=== PATIENT | male | born 2000 ===

== ENCOUNTER 2024-07-26 05:13 | Day surgery (SDC) | payer OTHER ==
[2024-07-20 11:18] VITALS: BP 121/77
[~2024-07-26] VITALS: Ht 177.8 cm; Wt 83.9 kg
[~2024-07-26 05:13] MED LIST: ABILIFY20 MG; CONCERTA18 MG PO; LEXAPRO20 MG; LEXAPRO5 MG PO; LITIO; LOVAZA1 GM PO; SYNTHROID50 MCG PO; TRILIPIX135 MG PO
[2024-07-26] MEDS ORDERED: BUPIVACAINE HCL 30 ML VIAL IJ ONE (10:15)
[2024-07-26] MEDS ORDERED: BUPIVACAINE LIPOSOME/PF 266 MG/20 ML VIAL IJ ONE (10:15)
[2024-07-26] MEDS ORDERED: POVIDONE-IODINE 118 ML BOTT TOP ONE (10:15)
[2024-07-26] MEDS ORDERED: HEMOSTATIC MATRIX 1 KIT KIT TOP ONE (10:15)
[2024-07-26] MEDS ORDERED: DIBUCAINE 30 GM TUBE RECTAL ONE (10:15)
[2024-07-26] MEDS ORDERED: CEFTRIAXONE SODIUM 2,000 MG VIAL IV SCH (10:15)
[2024-07-26] MEDS ORDERED: METRONIDAZOLE/SODIUM CHLORIDE 500 MG/100 ML PIGGYBACK IV SCH (10:15)
[2024-07-26] MEDS ORDERED: OXYCODONE HCL5 MG PO (10:38)
[2024-07-26] MEDS ORDERED: TAMSULOSIN HCL 0.4 MG CAP PO ONE (10:45)
[2024-07-26] MEDS ORDERED: MORPHINE SULFATE 4 MG/ML VIAL IV ONE (13:20)
== END 2024-07-26 15:15 | disposition home or self-care (01) ==
LOC: CIR.AMB 05:13
PROVIDERS: ATTEND Surgery
DX: D12.8 Benign neoplasm of rectum (principal); K62.89 Other specified diseases of anus and rectum; K62.5 Hemorrhage of anus and rectum; K62.0 Anal polyp; K60.1 Chronic anal fissure; K64.4 Residual hemorrhoidal skin tags; K59.09 Other constipation; K64.8 Other hemorrhoids; E03.8 Other specified hypothyroidism